=== PATIENT | male | born 1965 | race Caucasian/White ===

== ENCOUNTER → 2017-04-05 | Outpatient (CLI) | payer OTHER | LOC: COL.RAD 07:52 | DX: R10.11 Right upper quadrant pain (principal); R11.0 Nausea | CPT/HCPCS: A9537; J2270 ==

== ENCOUNTER → 2017-06-04 | Outpatient (CLI) | payer OTHER | LOC: COL.PUL 07:32 | DX: R06.02 Shortness of breath (principal) ==

== ENCOUNTER → 2017-07-03 | Outpatient (CLI) | payer OTHER | LOC: COL.PUL 07-02 11:00 | DX: R06.02 Shortness of breath (principal) | CPT/HCPCS: J7674 ==

== ENCOUNTER → 2017-12-04 | Outpatient (CLI) | payer OTHER | LOC: COL.RAD 07:57 | DX: R07.9 Chest pain, unspecified (principal); R05 Cough; K21.9 Gastro-esophageal reflux disease without esophagitis; J02.9 Acute pharyngitis, unspecified | CPT/HCPCS: A9541 ==

== ENCOUNTER → 2018-01-13 | Outpatient (CLI) | payer OTHER | LOC: COL.RAD 08:30 | DX: K21.9 Gastro-esophageal reflux disease without esophagitis (principal); K44.9 Diaphragmatic hernia without obstruction or gangrene; K22.4 Dyskinesia of esophagus ==

== ENCOUNTER 2018-02-05 05:20 | Day surgery (SDC) | payer OTHER ==
[~2018-02-05] VITALS: Ht 170.2 cm; Wt 76.6 kg
[2018-02-05] VITALS (11 sets, daily range): BP systolic 105–123; BP diastolic 66–78; PULSE 68–97; TEMP 97.6–98.3
[2018-02-05] MEDS ORDERED: DESYREL 100MG100 MG PO (05:58)
[2018-02-05] MEDS ORDERED: RESTORIL 1515 MG/CAP PO (05:58)
[2018-02-05] MEDS ORDERED: EFFEXOR-XR150 MG PO (05:59)
[2018-02-05] MEDS ORDERED: HUMIRA40 MG/0.8 SQ (06:00)
[2018-02-05] MEDS ORDERED: TOPAMAX 25MG25 M1 PO (06:01)
[2018-02-05] MEDS ORDERED: IMITREX 25MG TA25 MG PO (06:01)
[2018-02-05] MEDS ORDERED: DEXILANT60 MG PO (06:02)
[2018-02-05] MEDS ORDERED: 00186-0370-20 IH (06:03)
[2018-02-05] MEDS ORDERED: PROAIR HFA0.09 MG/AC IH (06:03)
[2018-02-05] MEDS ORDERED: PLAQUENIL 200M200 MG PO (06:04)
[2018-02-06 01:08] VITALS: BP 99/62; PULSE 81; TEMP 98
[2018-02-06 04:52] VITALS: BP 105/66; PULSE 80; TEMP 97.9
[2018-02-06 09:13] VITALS: BP 102/69; PULSE 88; TEMP 97.7
[2018-02-06 14:50] VITALS: BP 115/81; PULSE 74; TEMP 97.3
[2018-02-06 17:31] VITALS: BP 114/77; PULSE 71; TEMP 97.8
== END 2018-02-06 17:10 | disposition home or self-care (01) ==
LOC: SDCO 05:20 → SURG 10:00 → SDCO 02-06 17:10
DX: K21.9 Gastro-esophageal reflux disease without esophagitis (principal); M19.90 Unspecified osteoarthritis, unspecified site; K59.00 Constipation, unspecified; F32.9 Major depressive disorder, single episode, unspecified; G43.909 Migraine, unspecified, not intractable, without status migrainosus; J45.909 Unspecified asthma, uncomplicated; Z90.49 Acquired absence of other specified parts of digestive tract; Z80.3 Family history of malignant neoplasm of breast
CPT/HCPCS: OP; C1713; J0330; J0690; J1100; J1885; J2405; J2704; J2710; J3010; J7120